=== PATIENT | female | born 1950 | race Caucasian/White ===

== ENCOUNTER → 2016-08-08 | Outpatient (CLI) | payer MEDICARE, OTHER ==
[~2016-08-08] MED LIST: ASA325 MG PO; CELEBREX200 MG PO; KLOR-CON M2020 ME1 PO; MIRALAX PACKET17 GM PO; OXY IR DPS5 MG PO; PLEXUS BIOCLEANSE; PLEXUS BLOCK PO; PLEXUS PROBIOTIC PO; PRAVACHOL20 MG PO; PREVACID30 MG PO; PROTONIX40 MG PO; SENOKOT S1 TAB PO; TRIAMTERENE-HC1 EAC1 PO; TYLENOL DPS325 MG PO; ULTRAM DPS50 MG PO; ZOFRAN4 MG PO; [UNRECOGNIZED DRUG - OTHER] PO
== END | disposition home or self-care (01) ==
LOC: PTH.S 10:57
DX: Z01.818 Encounter for other preprocedural examination (principal); I10 Essential (primary) hypertension

== ENCOUNTER 2016-08-23 09:49 | Inpatient (IN) | payer MEDICARE, OTHER ==
[~2016-08-23] VITALS: Ht 160 cm; Wt 72.1 kg
--- NOTE | 2016-08-23 14:03 | HP ---
ADMIT: 08/23/2016 RM/LOC: W.04 [facility] MR#: [id number] [address] [address] PJ MORRIS [address] [place] [address] Pre-OP History and Physical SEX: F AGE: 66 : 1950 DATE OF SERVICE: CHIEF COMPLAINT: Left knee degenerative joint disease. HISTORY OF PRESENT ILLNESS: The patient is a 66-year-old female, who has benign left knee DJD, refractory nonoperative treatment. She desires total knee arthroplasty. PAST MEDICAL HISTORY: Significant for total hysterectomy. MEDICATIONS: She takes; 1. Antacid. 2. Potassium diuretic. 3. Pravastatin. ALLERGIES: NO ALLERGIES. SOCIAL HISTORY: The patient is a former smoker. Occasionally, drinks alcohol. PHYSICAL EXAMINATION: HEENT: Normocephalic and atraumatic. CV: Regular rate and rhythm. LUNGS: Benign. ABDOMEN: Benign. NEUROLOGIC: Awake and oriented x3. MUSCULOSKELETAL: Exam shows the left knee varus orientation with full extension, around 25 degrees of flexion. Tender over the medial joint line. Some pseudo medial collateral ligament laxity. No erythema or redness. No signs of infection. IMAGING DATA: X-rays show left knee DJD, [id number] medially, and patellofemoral arthrosis. ASSESSMENT AND PLAN: Left knee degenerative joint disease. At this point in time, we will plan left total knee arthroplasty. The patient understands the risks and benefits of the surgical intervention, but not limited to infection, DVT, arthrofibrosis, neurovascular injury, early loosening, , etc., and desires to proceed. She will see her medical doctor, Dr. Nunes for preoperative medical clearance and follow postoperatively in the hospital for anticoagulation and any medical issues that may arise. Please refer to that H and P for any in-depth medical issues or medication changes. Len Vick MD/ jaren JOB #: [id number] CC: Len Vick, Attending Physician ADMIT: 08/23/2016 RM/LOC: W.04 [facility] MR#: [id number] [address] [address] PJ MORRIS [address] [place] [address] Pre-OP History and Physical SEX: F AGE: 66 : 1950 Tommy Nunes, Family Physician
[2016-08-26] MEDS ORDERED: KLOR-CON M2020 ME1 PO (18:37)
[2016-08-26] MEDS ORDERED: PREVACID30 MG PO (18:40)
[2016-08-26] MEDS ORDERED: TYLENOL DPS325 MG PO ×3 (18:40→18:51)
[2016-08-26] MEDS ORDERED: PRAVACHOL20 MG PO (18:40)
[2016-08-26] MEDS ORDERED: TRIAMTERENE-HC1 EAC1 PO (18:40)
[2016-08-26] MEDS ORDERED: PLEXUS BLOCK PO (18:41)
[2016-08-26] MEDS ORDERED: PLEXUS BIOCLEANSE (18:41)
[2016-08-26] MEDS ORDERED: PLEXUS PROBIOTIC PO (18:42)
[2016-08-26] MEDS ORDERED: [UNRECOGNIZED DRUG - OTHER] PO (18:42)
[2016-08-26] MEDS ORDERED: CELEBREX200 MG PO (18:42)
[2016-08-26] MEDS ORDERED: MIRALAX PACKET17 GM PO (18:43)
[2016-08-26] MEDS ORDERED: ASA325 MG PO (18:43)
[2016-08-26] MEDS ORDERED: PROTONIX40 MG PO (18:44)
[2016-08-26] MEDS ORDERED: SENOKOT S1 TAB PO (18:44)
[2016-08-26] MEDS ORDERED: ULTRAM DPS50 MG PO ×2 (18:49→18:50)
[2016-08-26] MEDS ORDERED: ZOFRAN4 MG PO (18:51)
[2016-08-26] MEDS ORDERED: OXY IR DPS5 MG PO (18:51)
--- NOTE | 2016-08-30 13:58 | OR ---
ADMIT: 08/23/2016 RM/LOC: 530 [facility] MR#: [id number] [address] [address] PJ MORRIS [address] [place] [address] Operative/Delivery Room Report SEX: F AGE: 66 : 1950 SURGERY DATE: 08/23/2016 SURGEON: Len Vick MD PREOPERATIVE DIAGNOSIS: Left knee degenerative joint disease. POSTOPERATIVE DIAGNOSIS: Left knee degenerative joint disease. PROCEDURE PERFORMED: Left total knee arthroplasty with José Miguel and José Miguel system, size 2.5 posterior stabilized femoral component, size 2 tibial tray, 12.5 tibial insert, and size 35 patellar button. ASSISTANTS: 1. Lew Ridley MD. 2. Miguel Luu PA-C. ANESTHESIA: Spinal. ESTIMATED BLOOD LOSS: Minimal. FLUIDS: Per anesthetic record. COMPLICATIONS: None. DRAIN: One drain. TOURNIQUET TIME: Approximately 58 minutes. CONDITION ON DISCHARGE: The patient returned to the recovery room in fair condition. INDICATIONS: The patient has been having left knee pain refractory to nonoperative treatment due to severe knee DJD. She desires total knee arthroplasty. She understands the risks and benefits of the procedure and desires to proceed. DESCRIPTION OF PROCEDURE: The patient was taken to the OR, spinal placed. She was laid in the supine position on the OR table. All bony prominences were well padded. A well-padded tourniquet applied to left lower extremity. Left lower extremity was prepped and draped in the usual sterile fashion. It was exsanguinated and tourniquet inflated to 350 mmHg. Anterior incision was made starting over the medial aspect of the tibial tubercle, carried proximal to the patella through the skin and subcutaneous tissue with a skin knife. Medial arthrotomy then performed with #10 blade. Patella everted, knee flexed. The ACL, PCL, medial and lateral menisci excised. Step drill was then used to open the intramedullary canal of the femur. I placed the IM alignment guide with the distal femoral cutting block down the intramedullary canal of the femur set at 11 mm of resection 5 degrees of valgus. Cut and pinned it to the anterior aspect of the femur. I removed the IM alignment guide and cut the ADMIT: 08/23/2016 RM/LOC: 530 [facility] MR#: [id number] [address] [address] PJ MORRIS [address] [place] [address] Operative/Delivery Room Report SEX: F AGE: 66 : 1950 distal femur using an oscillating saw. I removed this cutting block and sized the femur to 2.5. I placed a size 2.5 four-in-one cutting block on the distal aspect of the femur in 3 degrees of external rotation and made the 4 appropriate cuts using an oscillating saw. I removed this cutting block and placed the box cutting jig on the distal aspect of the femur. I cut the box of the distal femur using a reciprocating saw. The proximal tibia was then cut perpendicular to the long axis of the tibial shaft using a proximal tibial cutting guide and oscillating saw. Posterior aspect of the patella was cut and flushed with the posterior aspects of the quadriceps patella tendons using the patella cutting saw. This was sized to 35 and step drilled with a guide. Trial components were then placed. A size 2 tibial insert with a 12.5 mm tibial insert gave excellent range of motion, stability, and patellar tracking. Thus, the femoral component step drilled, tibial component step drilled, and cruciate punched. Trial components were then removed. The knee was thoroughly irrigated with bacitracin solution and dried as the cement was being mixed. Once the cement was done being mixed, I cemented the tibia, patellar, and femoral components into place removing all extraneous cement as it dried. I then impacted the 10-mm insert into the tibial tray, ran the knee through a range of motion. It had excellent range of motion, stability, and patellar tracking. Thus, one deep drain was then placed. Medial arthrotomy closed using #1 Vicryl after I had thoroughly injected with Exparel-like compound and irrigated. The subcutaneous tissue closed using 2-0 Vicryl and skin closed using shon. Wounds were washed, dried, dressed with sterile Adaptic, 4 x 4s, ABD, Webril, and Orlando wrap. Drapes removed, tourniquet let down. An ice pad was placed over the top of the Orlando wrap. The patient was transferred to the hospital bed, and taken back to the recovery room in fair condition. Len Vick MD/ jaren JOB #: [id number] CC: Len Vick, Attending Physician Tommy Nunes, Family Physician
--- NOTE | 2016-09-02 07:29 | CO ---
ADMIT: 08/23/2016 RM/LOC: [facility] MR#: [id number] [address] [address] PJ MORRIS [address] [place] [address] Consultation Report SEX: F AGE: 66 : 1950 DATE OF CONSULTATION: 08/11/2016 ATTENDING PHYSICIAN: Len Vick CONSULTING PHYSICIAN: Tommy Nunes MD CHIEF COMPLAINT: Osteoarthritis, left knee. HISTORY OF PRESENT ILLNESS: Pj is a 65-year-old female, seen in the office today for preoperative clearance for left total knee arthroplasty next week with Dr. Vick. She has had a long-standing history of pain in the left knee and last year, it has gotten much worse. She has failed conservative management and has been evaluated by Dr. Vick, is scheduled for left total knee arthroplasty next week. She denies any recent health problems. No recent illness, fever, cough, congestion, etc. She is taking ibuprofen on a regular basis for knee pain, but is instructed to stop it a week before the surgery and use plain Tylenol. We discussed DVT prophylaxis and after discussing the pros and cons, she decided to go with aspirin postoperatively. She has no history of any clotting diathesis. PAST MEDICAL HISTORY: Operations: She had carpal tunnel surgery. 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 In 1997, she had vaginal hysterectomy. In 2006, colonoscopy revealed tubular adenoma. She has had negative colonoscopy since then. SOCIAL HISTORY: . Does not use tobacco. Drinks alcohol socially. FAMILY HISTORY: Mother had breast cancer with metastatic disease. Father at age 88, basically age-related health problems. He had prostate cancer, colon cancer, and an WI. She has had one brother at age 62 of an WI. Another brother of leukemia. Third brother had renal cancer. Another brother has had a stroke. She has a sister with breast cancer, who is alive. REVIEW OF SYSTEMS: Has chronic lymphedema of the left leg and is on Dyazide for that. Recently, lab showed hypokalemia. She is on oral potassium for that. Otherwise negative. ALLERGIES: NONE. MEDICATIONS: 1. Pantoprazole 30 mg daily. 2. Potassium 20 mEq b.i.d. 3. Pravachol 20 mg daily. 4. Dyazide 1 daily. 5. Ibuprofen. 6. Tylenol p.r.n. ADMIT: 08/23/2016 RM/LOC: W.04 [facility] MR#: [id number] [facility] [address] [address] PJ MORRIS [address] [place] [address] Consultation Report SEX: F AGE: 66 : 1950 PHYSICAL EXAMINATION: GENERAL: A 65-year-old female. She is alert and cooperative x3. VITAL SIGNS: Stable. BP is 122/70; respiratory rate is 22; temp 98.4; pulse 68 and regular; and O2 saturation 95% on room air. HEENT: Eyes, PERRLA. EOMs intact. TMs not seen. Throat is moist, well hydrated, not inflamed. NECK: Supple. No lymphadenopathy. No thyromegaly. Carotid pulses +2. No bruits. LUNGS: Clear. HEART: Regular rate. No murmur. Respirations not labored. BREASTS: Not examined. ABDOMEN: Soft. No organomegaly or tenderness. AND RECTAL: Deferred. EXTREMITIES: Decreased range of motion of the knee joint with some palpable crepitation more on the left than the right. DIAGNOSTIC IMPRESSION: 1. Osteoarthritis, left knee. 2. Remote history of ovarian serous cystadenoma. 3. Hyperlipidemia. 4. Personal history of colon polyps. 5. Lymphedema of the left lower extremity. PLAN: The patient is okay for OR. EKG is normal. Preop lab is normal, other than potassium was low at 2.9 and she is on potassium supplements now. Tommy Nunes MD/ jaren JOB #: [id number] CC: Len Vick, Attending Physician Tommy Nunes, Family Physician
--- NOTE | 2016-09-13 13:48 | DS ---
ADMIT: 08/23/2016 RM/LOC: 530 [facility] MR#: [id number] [address] [address] PJ MORRIS [address] [place] [address] General Discharge Summary SEX: F AGE: 66 : 1950 ADMISSION DATE: 08/23/2016 DISCHARGE DATE: 08/25/2016 REASON FOR ADMISSION: Left total knee arthroplasty after failing conservative care. PREOPERATIVE DIAGNOSIS: Left knee degenerative joint disease. POSTOPERATIVE DIAGNOSIS: Left knee degenerative joint disease. PROCEDURE PERFORMED: Left total knee arthroplasty. SURGEON: Len Vick MD. ASSISTANTS: 1. Lew Ridley MD. 2. SHENG Shell. ANESTHESIA: Spinal. ESTIMATED BLOOD LOSS: Minimal. COMPLICATIONS: None. TOURNIQUET TIME: Approximately 58 minutes. ACTIVE MEDICAL PROBLEMS: None. PAST MEDICAL HISTORY: Significant for carpal tunnel release, left oophorectomy, vaginal hysterectomy, and colonoscopies. HOSPITAL COURSE: The patient was admitted on 08/23/2016, for elective left total knee arthroplasty done by Dr. Vick without any complications. The patient tolerated the procedure well. Postoperatively, she was found to have hypokalemia. She was then given oral potassium twice a day, which did increase her potassium levels. Her pain was well controlled with oral medications postoperatively. She did suffer from some acute blood-loss anemia. Her hemoglobin dropped to 9.8 on 08/24/2016, but increased slightly to 9.9 on 08/25/2016, and she remained hemodynamically stable and did not require blood transfusion. By postoperative day #2, she was doing well physical therapy. She was safe, stable, and ready for discharge home with plans for outpatient physical therapy. DISCHARGE MEDICATIONS: 1. Potassium chloride ER 20 mEq twice daily. 2. Triamterene/hydrochlorothiazide 37.5/25 mg everyday. 3. Pantoprazole ER 30 mg everyday. 4. Pravastatin 20 mg at bedtime. 5. Tylenol 975 mg every 6 hours as needed for pain. ADMIT: 08/23/2016 RM/LOC: 530 [facility] MR#: [id number] [address] [address] PJ MORRIS [address] [place] [address] General Discharge Summary SEX: F AGE: 66 : 1950 6. Plexus Bio Cleanse supplement everyday. 7. Plexus Block supplement everyday. 8. Plexus XFactor supplement everyday. 9. Plexus probiotic every day. 10.Celebrex 200 mg twice daily. 11.Aspirin 325 mg every day for 6 weeks. 12.MiraLax 17 g every day. 13.Protonix 40 mg everyday for 6 weeks with aspirin. 14.Senokot 2 tablets twice daily. 15.Ultram 50 mg every 6 hours as needed for pain. 16.Oxycodone IR 5 mg every 6 hours as needed for breakthrough pain. 17.Zofran 4 mg every 4 hours as needed for nausea and vomiting. DISCHARGE INSTRUCTIONS: The patient was discharged home with plans for outpatient physical therapy per total knee arthroplasty protocol. Follow up in the orthopedic office in 2 weeks for wound check, in 6 weeks with x-ray. Follow up with primary care as directed. SHENG Saha / Len Vick MD / jaren JOB #: [id number] CC: Len Vick MD, Attending Physician Tommy Nunes MD, Family Physician
== END 2016-08-25 16:30 | disposition home or self-care (01) | DRG 470 ==
LOC: 5MS 09:49 → WOR 09:49 → 5MS 14:02
PROVIDERS: ADMIT Orthopaedic Surgery
PROC: 0SRD0J9 Replacement of Left Knee Joint with Synthetic Substitute, Cemented, Open Approach (ICD-10-PCS; principal; 2016-08-23)
DX: M17.12 Unilateral primary osteoarthritis, left knee (principal); D62 Acute posthemorrhagic anemia; E78.5 Hyperlipidemia, unspecified; E87.6 Hypokalemia; I89.0 Lymphedema, not elsewhere classified; Z87.891 Personal history of nicotine dependence; Z82.49 Family history of ischemic heart disease and other diseases of the circulatory system